=== PATIENT | male | born 1995 | race African-American/Black ===

== ENCOUNTER 2021-12-09 07:29 | Emergency (ER) | payer MEDICAID, OTHER ==
[~2021-12-09] VITALS: Ht 185.4 cm; Wt 117.9 kg
[2021-12-09] MEDS ORDERED: DexAMETHasone 4 MG TAB PO ONE (07:45)
[2021-12-09] MEDS ORDERED: IPRATROPIUM BROM 0.5 MG/2.5ML INH SOL NEB ONE (07:45)
[2021-12-09] MEDS ORDERED: ALBUTEROL SULF 2.5 MG/0.5ML(0.5%) NEB SOLN NEB ONE (07:45)
[2021-12-09] MEDS ORDERED: DexAMETHasone 4 MG TAB ONE ×2 (07:56→07:58)
[2021-12-09 08:15] LABS: Basophils # (auto) 0 10 ^3/uL (0-0.2); Basophils % (auto) 0.7 % (0.0-2.0); Eosinophils # (auto) 0.2 10 ^3/uL (0-0.8); Eosinophils % (auto) 4.1 % (0.0-7.0); Hematocrit 45.4 % (41.0-53.0); Hemoglobin 14.9 g/dL (13.5-17.5); Lymphocytes % (auto) 32.8 % (10.0-50.0); Mean Corpuscular Hemoglobin 28.9 pg (28.0-32.0); Mean Corpuscular Hgb Conc. 32.7 g/dL (32.0-36.0); Mean Corpuscular Volume 88.1 fL (80.0-100.0); Monocytes # (auto) 0.6 10 ^3/uL (0-1.3); Monocytes % (auto) 10.2 % (0.0-12.0); Neutrophils # (auto) 3.2 10 ^3/uL (1.6-8.6); Neutrophils % (auto) 52.2 % (37.0-80.0); Nucleated Red Blood Cells % 0.3 %; Red Blood Cells 5.15 10^6/uL (4.5-5.90); Red Cell Distribution Width 14.1 % (11.8-14.3); White Blood Cell 6.1 10^3/uL (4.4-10.8)
[2021-12-09 08:22] LABS: Albumin 3.7 g/dL (3.4-5.0); BUN/Creatinine Ratio 8.9; Calcium 9.4 mg/dL (8.5-10.1); Potassium 4.2 mmol/L (3.5-5.1)
[2021-12-09 08:25] LABS: Bilirubin, Total 0.7 mg/dL (0.2-1.0); Total Protein 7.5 g/dL (6.4-8.2)
[2021-12-09] MEDS ORDERED: ALBUAER3 IN (09:57)
[2021-12-09 10:11] VITALS: BP 145/62
== END 2021-12-09 10:13 | disposition home or self-care (01) ==
LOC: ER 07:29
DX: J45.901 Unspecified asthma with (acute) exacerbation (principal)
CPT/HCPCS: 36415; 71045; 80053; 85025; 93005; 94640; 99285; J7644; J8540

== ENCOUNTER 2022-10-23 10:35 | Emergency (ER) | payer MEDICAID ==
[~2022-10-23] VITALS: Ht 182.9 cm; Wt 127.2 kg
[~2022-10-23 10:35] MED LIST: ALBUAER3 IN
[2022-10-23] MEDS ORDERED: methylPREDNISolone SOD SUCC 125 MG/2 ML VL IV ONE (10:45)
[2022-10-23] MEDS ORDERED: ALBUTEROL SULF 2.5 MG/0.5ML(0.5%) NEB SOLN NEB ONE (10:45)
[2022-10-23 11:53] LABS: Basophils # (auto) 0 10 ^3/uL (0-0.2); Basophils % (auto) 0.6 % (0.0-2.0); Eosinophils # (auto) 0.2 10 ^3/uL (0-0.8); Eosinophils % (auto) 3.3 % (0.0-7.0); Hematocrit 45.2 % (41.0-53.0); Hemoglobin 14.6 g/dL (13.5-17.5); Lymphocytes # (auto) 2.9 10 ^3/uL (0.4-5.4); Lymphocytes % (auto) 40.1 % (10.0-50.0); Mean Corpuscular Hemoglobin 27.7 pg (28.0-32.0); Mean Corpuscular Hgb Conc. 32.2 g/dL (32.0-36.0); Mean Corpuscular Volume 86.1 fL (80.0-100.0); Monocytes # (auto) 0.7 10 ^3/uL (0-1.3); Monocytes % (auto) 9.3 % (0.0-12.0); Neutrophils # (auto) 3.4 10 ^3/uL (1.6-8.6); Neutrophils % (auto) 46.7 % (37.0-80.0); Nucleated Red Blood Cells % 0.4 %; Red Blood Cells 5.25 10^6/uL (4.5-5.90); Red Cell Distribution Width 14.1 % (11.8-14.3); White Blood Cell 7.2 10^3/uL (4.4-10.8)
[2022-10-23] MEDS ORDERED: PRED20TA2 PO (11:59)
[2022-10-23 12:22] LABS: Albumin 3.7 g/dL (3.4-5.0); Potassium 4.3 mmol/L (3.5-5.1)
[2022-10-23 12:27] LABS: BUN/Creatinine Ratio 10.9; Bilirubin, Total 0.7 mg/dL (0.2-1.0); Total Protein 6.9 g/dL (6.4-8.2)
[2022-10-23 12:40] VITALS: BP 129/71
[2022-10-23 13:29] LABS: Urine Bacteria NONE SEEN /hpf (None Seen); Urine Blood Negative /uL (Negative); Urine Specific Gravity 1.021 (1.001-1.035); Urine WBC 15 /hpf (0 - 3)
[2022-10-23] MEDS ORDERED: CEPH-510 PO (14:22)
== END 2022-10-23 14:41 | disposition home or self-care (01) ==
LOC: ER 10:35 → EDBD 10:35 → ER 14:39
DX: J45.901 Unspecified asthma with (acute) exacerbation (principal); N39.0 Urinary tract infection, site not specified; R07.89 Other chest pain
CPT/HCPCS: 36415; 71045; 80053; 81001; 84484; 85025; 85379; 93005; 94644; 96374; 99285; J2930

== ENCOUNTER 2023-04-17 01:55 | Emergency (ER) | payer MEDICAID ==
[~2023-04-17] VITALS: Ht 182.9 cm; Wt 135.0 kg
[~2023-04-17 01:55] MED LIST changes: +CEPH-510 PO; +PRED20TA2 PO
[2023-04-17] MEDS ORDERED: IPRATROPIUM BROM 0.5 MG/2.5ML INH SOL NEB ONE ×2 (02:30→09:30)
[2023-04-17] MEDS ORDERED: ALBUTEROL SULF 2.5 MG/0.5ML(0.5%) NEB SOLN NEB ONE ×2 (02:30→09:30)
[2023-04-17] MEDS ORDERED: DexAMETHasone SOD PHOS 10MG/1ML VIAL INJ IV ONE ×2 (02:30→09:30)
[2023-04-17 02:57] LABS: Alanine Aminotransferase 21 U/L (7-40); Albumin 4.6 g/dL (3.2-4.8); Alkaline Phosphatase 59 U/L (46-116); Anion Gap 6.5 (5-15); Aspartate Aminotransferase 12 U/L (13-40); BUN/Creatinine Ratio 6.1 (10.0-20.0); Basophils # (auto) 0.1 10 ^3/uL (0-0.2); Basophils % (auto) 0.7 % (0.0-2.0); Bilirubin, Total 0.8 mg/dL (0.2-1.0); Blood Urea Nitrogen 7 mg/dL (9-23); Calcium 9.8 mg/dL (8.7-10.4); Carbon Dioxide 27.5 mmol/L (20-30); Chloride 107 mmol/L (98-107); Eosinophils # (auto) 0.2 10 ^3/uL (0-0.8); Eosinophils % (auto) 2.6 % (0.0-7.0); Glucose 106 mg/dL (74-106); Hematocrit 48.1 % (41.0-53.0); Hemoglobin 15.6 g/dL (13.5-17.5); Lymphocytes % (auto) 21.1 % (10.0-50.0); Mean Corpuscular Hemoglobin 27.8 pg (28.0-32.0); Mean Corpuscular Hgb Conc. 32.4 g/dL (32.0-36.0); Mean Corpuscular Volume 85.7 fL (80.0-100.0); Monocytes # (auto) 0.9 10 ^3/uL (0-1.3); Monocytes % (auto) 9.1 % (0.0-12.0); Neutrophils # (auto) 6.3 10 ^3/uL (1.6-8.6); Neutrophils % (auto) 66.5 % (37.0-80.0); Nucleated Red Blood Cells % 0.1 %; Potassium 3.6 mmol/L (3.5-5.1); Red Blood Cells 5.61 10^6/uL (4.5-5.90); Red Cell Distribution Width 14.1 % (11.8-14.3); Sodium 141 mmol/L (136-145); White Blood Cell 9.5 10^3/uL (4.4-10.8)
[2023-04-17 02:58] LABS: Total Protein 7.9 g/dL (5.7-8.2)
[2023-04-17 03:14] LABS: INR 1.01 (0.9-1.15); Partial Thromboplastin Time 34.4 SEC (24.5-34.5); Prothrombin Time 10.6 sec (9.3-11.8)
[2023-04-17 03:40] VITALS: PULSE 105; RESP 20; O2SAT 89
[2023-04-17 04:36] LABS: Rapid Influenza A Negative (Negative); Rapid Influenza B Negative (Negative)
[2023-04-17 04:37] LABS: COVID19 ANTIGEN SOFIA FIA NEGATIVE (NEGATIVE)
[2023-04-17 08:00] VITALS: PULSE 95; RESP 22; TEMP 98; O2SAT 95
[2023-04-17 10:00] VITALS: BP 111/57; PULSE 106; RESP 21; O2SAT 92
[2023-04-17] MEDS ORDERED: ALBUAER3 IN (10:58)
[2023-04-17] MEDS ORDERED: PRED20TA2 PO (10:58)
[2023-04-23] MEDS ORDERED: ALBUAER3 IN (05:50)
[2023-04-23] MEDS ORDERED: PRED20TA2 PO (05:50)
== END 2023-04-17 12:05 | disposition home or self-care (01) ==
LOC: EDBD 01:55 → ER 01:56
DX: J45.901 Unspecified asthma with (acute) exacerbation (principal); F15.90 Other stimulant use, unspecified, uncomplicated; Z20.822 Contact with and (suspected) exposure to COVID-19
CPT/HCPCS: 36415; 71045; 80053; 84484; 85025; 85379; 85610; 85730; 87426; 87804; 93005; 94640; 96374; 96376; 99285; J1100; J7644

== ENCOUNTER 2023-09-01 04:44 | Emergency (ER) | payer MEDICAID ==
[~2023-09-01] VITALS: Ht 182.9 cm; Wt 118.0 kg
[2023-09-01] MEDS ORDERED: ALBU108A5 IN (05:14)
[2023-09-01] MEDS ORDERED: PRED20TA2 PO (05:14)
[2023-09-01] MEDS ORDERED: predniSONE 20 MG TAB PO ONE (05:15)
[2023-09-01] MEDS ORDERED: ALBUTEROL SULF 2.5 MG/0.5ML(0.5%) NEB SOLN NEB ONE (05:15)
[2023-09-01] MEDS ORDERED: IPRATROPIUM BROM 0.5 MG/2.5ML INH SOL NEB ONE (05:15)
[2023-09-01 05:18] VITALS: TEMP 98.1
[2023-09-01 05:19] VITALS: PULSE 76; RESP 17; O2SAT 92
[2023-09-01 06:37] VITALS: BP 129/78; PULSE 80; RESP 20; O2SAT 94
== END 2023-09-01 06:45 | disposition home or self-care (01) ==
LOC: ER 04:44 → EDBD 04:44 → ER 06:45
DX: J45.901 Unspecified asthma with (acute) exacerbation (principal); F15.90 Other stimulant use, unspecified, uncomplicated
CPT/HCPCS: 94640; 99283; J7512; J7644

== ENCOUNTER 2023-12-29 13:23 | Emergency (ER) | payer MEDICAID ==
[~2023-12-29] VITALS: Ht 195.6 cm; Wt 136.8 kg
[~2023-12-29 13:23] MED LIST changes: +ALBU108A5 IN; +METH4PAK PO
[2023-12-29] MEDS: SODIUM CHLORIDE 0.9% 1,000 ML IV ONE (13:53)
[2023-12-29] MEDS: IPRATROPIUM BROM 0.5 MG/2.5ML INH SOL HHN ONE (13:53)
[2023-12-29] MEDS: ALBUTEROL SULF 2.5 MG/0.5ML(0.5%) NEB SOLN HHN ONE (13:54)
[2023-12-29] MEDS: methylPREDNISolone SOD SUCC 125 MG/2 ML VL IV ONE (13:54)
[2023-12-29 15:08] VITALS: BP 150/90; PULSE 84; RESP 18; TEMP 98; O2SAT 96
[2023-12-29] MEDS ORDERED: PRED20TA2 PO (15:44)
[2023-12-29] MEDS ORDERED: ALBU0.084 IN (15:44)
[2023-12-29] MEDS ORDERED: AZIT1POW PO (15:45)
== END 2023-12-29 16:01 | disposition home or self-care (01) ==
LOC: ER 13:23
DX: J45.901 Unspecified asthma with (acute) exacerbation (principal); F12.10 Cannabis abuse, uncomplicated
CPT/HCPCS: 71046; 94644; 96361; 96374; 99285; J2919; J7030; J7644

== ENCOUNTER 2024-02-21 16:19 | Emergency (ER) | payer MEDICAID ==
[~2024-02-21] VITALS: Ht 185.4 cm; Wt 134.2 kg
[~2024-02-21 16:19] MED LIST changes: +ALBU0.084 IN; +AZIT1POW PO
[2024-02-21] MEDS: IPRATROPIUM BROM 0.5 MG/2.5ML INH SOL NEB ONE (18:45)
[2024-02-21] MEDS: ALBUTEROL SULF 2.5 MG/0.5ML(0.5%) NEB SOLN NEB ONE (18:45)
[2024-02-21] MEDS: DexAMETHasone SOD PHOS 10MG/1ML VIAL INJ IM ONE (19:55)
[2024-02-21] MEDS ORDERED: ALBUAER3 IN (20:02)
[2024-02-21] MEDS ORDERED: ALBU0.084 IN (20:02)
[2024-02-21] MEDS ORDERED: PRED20TA2 PO (20:02)
[2024-02-21 20:08] VITALS: BP 140/88; PULSE 79; RESP 18; TEMP 98.6; O2SAT 94
== END 2024-02-21 20:19 | disposition home or self-care (01) ==
LOC: ER 16:19
DX: J45.901 Unspecified asthma with (acute) exacerbation (principal); F15.90 Other stimulant use, unspecified, uncomplicated
CPT/HCPCS: 71045; 94640; 96372; 99283; J1100; J7644

== ENCOUNTER 2024-11-10 01:23 | Emergency (ER) | payer MEDICAID ==
[~2024-11-10] VITALS: Ht 182.9 cm; Wt 141.2 kg
[2024-11-10] MEDS: methylPREDNISolone SOD SUCC 125 MG/2 ML VL IM ONE (01:37)
[2024-11-10 01:41] VITALS: TEMP 98.2
[2024-11-10] MEDS: IPRATROPIUM BROM 0.5 MG/2.5ML INH SOL NEB ONE ×2 (01:53→02:27)
[2024-11-10] MEDS: ALBUTEROL SULF 2.5 MG/0.5ML(0.5%) NEB SOLN NEB ONE ×2 (01:53→02:26)
[2024-11-10] MEDS ORDERED: ALBUAER3 IN (02:00)
[2024-11-10] MEDS ORDERED: PRED20TA2 PO (02:00)
[2024-11-10] MEDS ORDERED: ALBU0.084 IN (02:00)
--- NOTE | 2024-11-10 02:00 | ED.PDOC ---
SOB-HPI HPI Comments 29-YEAR-OLD MALE PRESENTS TO ER WITH COMPLAINTS OF ASTHMA EXACERBATION X 30 MINUTES. PATIENT WITH PAST MEDICAL HISTORY SIGNIFICANT FOR ASTHMA REPORTS THAT HE STARTED EXPERIENCING SHORTNESS OF BREATH, WHEEZING AND DRY COUGH 30 MINUTES PRIOR TO ARRIVAL TO ER. STATES HE HAS HAD SIMILAR SYMPTOMS IN THE PAST RELATED TO ASTHMA EXACERBATION. NOTES THAT HE RAN OUT OF HIS ALBUTEROL INHALER ALONG WITH ALBUTEROL NEBULIZER SOLUTION "ONE MONTH AGO", DENYING USE OF MEDICATION FOR CURRENT SYMPTOMS. PATIENT PRESENTS TO ER AMBULATORY ON ARRIVAL, WITH STEADY GAIT, IN MILD DISTRESS WITH MILD WHEEZING NOTED TO BILATERAL UPPER/LOWER LUNG FIGUEROA. DENIES CHEST PAIN, FEVER, RECENT ILLNESS OR ANY FURTHER SYMPTOMS /COMPLAINTS Chief Complaint: Asthma Time Seen by MD: :28 Primary Care Provider: [facility] Reviewed notes: Nurses Notes, Medications, Allergies Mode of Arrival: Ambulatory Past Medical History PAST MEDICAL HISTORY: Asthma Surgical History: Denies all surgeries Family History Family History: Family hx of HTN Social History Smoker: Non-Smoker Alcohol: Occasionally Drugs: Marijuana Lives In: Home Constitutional: denies: chills, diaphoresis, fatigue, fever, malaise, sweats, weakness, others EENTM: denies: blurred vision, double vision, ear bleeding, ear discharge, ear drainage, ear pain, ear ringing, eye pain, eye redness, hearing loss, mouth pain, mouth swelling, nasal discharge, nose bleeding, nose congestion, nose pain, photophobia, tearing, throat pain, throat swelling, voice changes, others Respiratory: reports: others ( STATED IN HPI) Cardiovascular: denies: chest pain, dizzy spells, diaphoresis, Dyspnea on exertion, edema, irregular heart beat, left arm pain, lightheadedness, palpitations, PND, syncope, others Gastrointestinal: denies: abdomen distended, abdominal pain, blood streaked bowels, constipated, diarrhea, dysphagia, difficulty swallowing, hematemesis, melena, nausea, poor appetite, poor fluid intake, rectal bleeding, rectal pain, vomiting, others Genitourinary: denies: burning, dysuria, flank pain, frequency, hematuria, incontinence, penile discharge, penile sore, pain, testicle pain, testicle swelling, urgency, others Neurological: denies: dizziness, fainting, headache, left sided numbness, left sided weakness, numbness, paresthesia, pre-existing deficit, right sided numbness, right sided weakness, seizure, speech problems, tingling, tremors, wea kness, others Musculoskeletal: denies: back pain, gout, joint pain, joint swelling, muscle pain, muscle stiffness, neck pain, others Integumetry: denies: bruises, change in color, change in hair/nails, dryness, l aceration, lesions, lumps, rash, wounds, others Allergic/Immunocompromised: denies: Difficulty Healing, Frequent Infections, Hives, Itching, others Hematologic/Lymphatic: denies: anemia, blood clots, easy bleeding, easy bruising, swollen glands, others Endocrine: denies: excessive hunger, excessive sweating, excessive thirst, excessive urination, flushing, intolerance to cold, intolerance to heat, unexplained weight gain, unexplained weight loss, others Psychiatric: denies: anxiety, bipolar disorder, depression, hopeless, panic disorder, schizophrenia, sleepless, suicidal, others Physical Exam General Appearance: Mild Distress, Obese HEENT: Normal ENT Inspection, PERRL/EOMI, Pharynx Normal, TMs Normal Neck: Full Range of Motion, Non-Tender, Normal Respiratory: Chest Non-Tender, Lungs Clear, No Accessory Muscle Use, No Respir atory Distress, Wheezing (MILD WHEEZING NOTED TO BILATERAL UPPER/LOWER LUNG FIGUEROA) Cardiovascular: No Murmur, No Gallop, Regular Rate/Rhythm Breast Exam: Deferred Gastrointestinal: NOT DONE Genitalia: Deferred Pelvic: Deferred Rectal: Deferred Extremities: Normal capillary refill, Normal range of motion Neurologic: Alert, internal control specialist II-XII nml as Tested, No Motor Deficits, No Sensory Deficits Cerebellar Function: Normal Reflexes: Normal Skin: Dry, Normal Color, Warm Peripheral Pulses: 2+ Radial (R), 2+ Radial (L), 2+ Brachial (R), 2+ Brachial (L) Lymphatic: No Adenopathy Was a procedure done? Was a procedure done?: No Sedation Sedation?: No Differential Dx Differential Diagnosis: Pneumonia, Respiratory Distress, Pharyngitis X-Ray, Labs, Meds, VS Vital Signs Date Time Temp Pulse Resp B/P (MAP) Pulse Ox O2 Delivery O2 Flow Rate FiO2 11/10/24 02:31 86 18 149/88 (108) 97 11/10/24 02:15 20 89 Room Air* 0 21 11/10/24 01:45 22 98 Nasal Cannula* 6 44 11/10/24 01:41 22 92 Room Air* 0 21 11/10/24 01:41 98.2 86 22 149/88 (108) 92 98.2 Current Medications Medications (Trade) Dose Ordered Sig/Yas Route Start Time Stop Time Status Last Admin Albuterol (Ventolin Medneb) 5 mg ONCE ONCE NEB 11/10/24 01:45 11/10/24 01:46 DC 11/10/24 01:53 Ipratropium Kirvin (Atrovent Medneb) 0.5 mg ONCE ONCE NEB 11/10/24 01:45 11/10/24 01:46 DC 11/10/24 01:53 Methylprednisolone Sodium Succinate (Solu Medrol) 125 mg ONCE ONCE IM 11/10/24 01:45 11/10/24 01:46 DC 11/10/24 01:37 Albuterol (Ventolin Medneb) 5 mg ONCE ONCE NEB 11/10/24 02:15 11/10/24 02:16 DC 11/10/24 02:26 Ipratropium Kirvin (Atrovent Medneb) 0.5 mg ONCE ONCE NEB 11/10/24 02:15 11/10/24 02:16 DC 11/10/24 02:27 PATIENT: MELQUIADES CLEMONS ACCT: [id number] UNIT: [id number] : 1995 LOC: ER ROOM / BED: / AGE / SEX: 29 / M ADM STATUS: REG ER SERVICE [id number] ORDERING PHYSICIAN: ISMAEL SCHWARTZ PROCEDURE(s): CXR1 - CHEST XRAY 1 VIEW REASON: sob ORDER NUMBER(s): [id number], ACCESSION NUMBER(s): [id number] CHEST RADIOGRAPH Indication: sob Technique: Single frontal view of the chest was obtained Comparison: XY CHEST PORTABLE on DOS: 02/21/24, XY CHEST XRAY 1 VIEW on DOS: , XY CHEST XRAY 1 VIEW on DOS: 04/17/23 IMPRESSION: Heart appears normal in size. The lungs appear clear without focal airspace opacity, effusion, or pneumothorax ATED BY: GRISELDA CUMMINS MD DICTATED DATE/TIME: 11/10/24229 SIGNED BY: GRISELDA CUMMINS MD SIGNED DATE/TIME: 11/10/24229 CC: 2 DUO NEBULIZER TREATMENTS ORDERED SOLU-MEDROL 125 MG IM ORDERED CHEST X-RAY REVIEWED PREVIOUS CHART HISTORY REVIEWED PATIENT HAD IMPROVEMENT IN SYMPTOMS AND WAS ASYMPTOMATIC PRIOR TO DISCHARGE ADVISED TO DRINK PLENTY OF FLUIDS ADVISED TO FOLLOW UP WITH PCP IN 1-2 DAYS PATIENT VERBALIZED UNDERSTANDING AND AGREEABLE WITH CURRENT PLAN OF CARE ADVISED TO RETURN TO ER IMMEDIATELY IF SYMPTOMS WORSE Images Reviewed?: Images reviewed and evaluated by me Time of 1ST Reevaluation: 01:24 Reevaluation 1ST: N/A Time of 2ND Reevaluation: 02:32 Reevaluation 2ND: Improved Patient Education/Counseling: Diagnosis, Treatment, Prognosis, Need For Follow Up Family Education/Counseling: No Family Present Departure 1 Departure Time of Disposition: 02:34 Impression: Primary Impression: Acute asthma exacerbation Qualified Codes: J45.41 - Moderate persistent asthma with (acute) exace rbation Disposition: 01 HOME / SELF CARE / HOMELESS Condition: Stable e-Prescriptions Prednisone (Prednisone) 20 Mg Tab 20 MG PO BID for 5 Days, #10 TAB 0 Refills Prov: ISMAEL SCHWARTZ 11/10/24 Albuterol Sulfate (VENTOLIN MDI) 90 Mcg Ih 2 PUFF IN Q4HPRN, #1 INH 0 Refills Prov: ISMAEL SCHWARTZ 11/10/24 Albuterol Sulfate (Albuterol Sulfate) 0.083 % Neb 0.083 % IN Q4HP PRN for 20 Days, #30 INH Prov: ISMAEL SCHWARTZ 11/10/24 Discharged With: Self Critical Care Note Critical Care Time?: No Stability Stability form required: No Heart Score Heart Score: Heart Score Response (Comments) Value History N/A 0 EKG N/A 0 Age N/A 0 Risk Factors N/A 0 Troponin N/A 0 Total 0 ISMAEL SCHWARTZ Nov 10, 2024 02:00
[2024-11-10] MEDS: ALBUTEROL SULF 2.5 MG/0.5ML(0.5%) NEB SOLN ONE (02:27)
[2024-11-10] MEDS: IPRATROPIUM BROM 0.5 MG/2.5ML INH SOL ONE (02:27)
[2024-11-10 02:31] VITALS: BP 149/88; PULSE 86; RESP 18; O2SAT 97
--- NOTE | 2024-11-10 02:32 | DVH ---
CHEST RADIOGRAPH Indication: sob Technique: Single frontal view of the chest was obtained Comparison: XY CHEST PORTABLE on DOS: 02/21/24, XY CHEST XRAY 1 VIEW on DOS: 10/05/23, XY CHEST XRAY 1 VIEW on DOS: 04/17/23 IMPRESSION: Heart appears normal in size. The lungs appear clear without focal airspace opacity, effusion, or pn eumothorax
== END 2024-11-10 02:38 | disposition home or self-care (01) ==
LOC: ER 01:23
DX: J45.901 Unspecified asthma with (acute) exacerbation (principal); F12.90 Cannabis use, unspecified, uncomplicated
CPT/HCPCS: 71045; 94640; 96372; 99284; J2919